=== PATIENT | female | born 1975 | race Caucasian/White ===

== ENCOUNTER 2024-07-16 03:46 | Inpatient (IN) ==
[2024-07-16] MEDS: 0.9 % SODIUM CHLORIDE 1,000 ML IV ONE (04:08)
[2024-07-16] MEDS: methylPREDNISolone SOD SUCC 125 MG/2 ML VIAL IV ONE (04:08)
[2024-07-16 04:22] LABS: Basophils # (Auto) 0.07 K/mcL (0.00-0.30); Basophils % (Auto) 0.5 % (0.0-2.0); Eosinophils # (Auto) 0.66 K/mcL (0.00-0.70); Eosinophils % (Auto) 5.1 % (0.0-7.0); Hematocrit 43.8 % (34.1-44.9); Hemoglobin 14.1 g/dL (11.2-15.7); Lymphocytes # (Auto) 3.97 K/mcL (1.50-4.80); Lymphocytes % (Auto) 30.5 % (15.5-49.0); Mean Cell Volume 89.2 fL (80.0-100.0); Mean Corpuscular HGB Conc 32.2 g/dL (31.0-36.0); Mean Platelet Volume 10.2 fL (8.8-12.5); Monocytes # (Auto) 0.67 K/mcL (0.10-0.90); Monocytes % (Auto) 5.1 % (1.0-12.0); Neutrophils % (Auto) 58.1 % (38.0-78.0); Platelet Count 342 K/mcL (140-440); RBC 4.91 M/mcL (3.59-5.38); Red Cell Distribution Width 14.3 % (11.5-14.5)
[2024-07-16] MEDS: MAGNESIUM SULFATE 8.12 MEQ/2 ML VIAL IV ONE (04:32)
[2024-07-16 04:41] LABS: proBNP < 36.0 pg/mL (<125.0)
[2024-07-16 04:43] LABS: ALT/SGPT 26 U/L (<40); AST/SGOT 23 U/L (<32); Albumin 3.9 gm/dL (3.2-5.2); Alkaline Phosphatase 101 U/L (39-117); Bilirubin,Total 0.4 mg/dL (0.1-1.0); Blood Urea Nitrogen 8 mg/dL (6-20); Calcium 9.7 mg/dL (8.6-10.4); Carbon Dioxide 20 mmol/L (22-30); Chloride 101 mmol/L (96-108); Globulin 3.9 gm/dL (2.2-3.7); Glomerular Filtration Rate 106; Glucose 278 mg/dL (70-105); Potassium 3.3 mmol/L (3.3-5.1); Sodium 138 mmol/L (133-145)
[2024-07-16] MEDS: diphenhydrAMINE 50 MG/ML VIAL IV ONE (04:56)
[2024-07-16] MEDS: EPINEPHrine 1 MG/ML VIAL IM ONE (05:09)
[2024-07-16] MEDS ORDERED: ALBUTEROL SULFATE 60 PUFF INHALER INH PRN (08:15)
[2024-07-16] MEDS ORDERED: traZODone HCL 50 MG TABLET PO PRN (09:32)
[2024-07-16] MEDS ORDERED: DEXTROSE 50% 50 ML VIAL IV PRN (09:32)
[2024-07-16] MEDS ORDERED: ACETAMINOPHEN 325 MG TABLET PO PRN (09:32)
[2024-07-16] MEDS ORDERED: DEXTROSE 31 GM ORAL.SUSP PO PRN (09:32)
[2024-07-16] MEDS ORDERED: IPRATROPIUM/ALBUTEROL 3 ML AMPUL.NEB NEB PRN (09:32)
[2024-07-16] MEDS ORDERED: ONDANSETRON 4 MG/2 ML VIAL IV PRN (09:32)
[2024-07-16] MEDS: DOCUSATE SODIUM 100 MG CAPSULE PO SCH (09:39)
[2024-07-16] MEDS: FORMOTEROL INH SCH (09:39)
[2024-07-16] MEDS: [UNRECOGNIZED DRUG - OTHER] INH SCH (09:39)
[2024-07-16] MEDS: BUDESONIDE INH SCH (09:39)
[2024-07-16] MEDS: IPRATROPIUM/ALBUTEROL 3 ML AMPUL.NEB NEB SCH (10:28)
[2024-07-16] MEDS: ENOXAPARIN 40 MG/0.4 ML SYRINGE SQ SCH (10:30)
[2024-07-16 10:32] LABS: Estimated Average Glucose(eAG) 232 mg/dL; Hemoglobin A1C 9.7 % Hgb (4.0-6.0)
[2024-07-16] MEDS: INSULIN LISPRO 1 UNIT/0.01 ML UNIT SQ SCH (11:41)
[2024-07-16] MEDS: diphenhydrAMINE 50 MG/ML VIAL IV PRN (14:02)
[2024-07-16] MEDS: 0.9 % SODIUM CHLORIDE 10 ML SYRINGE IV SCH (14:02)
[2024-07-16] MEDS: methylPREDNISolone SOD SUCC 125 MG/2 ML VIAL IV SCH (14:02)
[2024-07-16] MEDS: POTASSIUM CHLORIDE 20 MEQ TABLET PO SCH (16:47)
[2024-07-16] MEDS: rOPINIRole 1 MG TABLET PO SCH (19:15)
[2024-07-16] MEDS: BENZONATATE 100 MG CAPSULE PO PRN (19:16)
[2024-07-16] MEDS: SENNOSIDES 1 TABLET PO SCH (19:18)
[2024-07-16] MEDS: INSULIN GLARGINE, HUMAN 1 UNIT/0.01 ML SQ SCH (22:02)
[2024-07-17] MEDS: guaiFENesin/DEXTROMETHORPHAN 5ML UD CUP PO PRN (01:37)
[2024-07-17 07:03] LABS: Blood Urea Nitrogen 15 mg/dL (6-20); Calcium 9.9 mg/dL (8.6-10.4); Carbon Dioxide 20 mmol/L (22-30); Chloride 98 mmol/L (96-108); Glomerular Filtration Rate 101; Glucose 372 mg/dL (70-105); Potassium 4.4 mmol/L (3.3-5.1); Sodium 133 mmol/L (133-145)
[2024-07-17] MEDS: OMEPRAZOLE 20 MG CAPSULE PO SCH (07:40)
[2024-07-17] MEDS: SERTRALINE 50 MG TABLET PO SCH (09:53)
[2024-07-17] MEDS: MONTELUKAST 10 MG TABLET PO SCH (09:53)
[2024-07-17] MEDS: PNEUMOCOCCAL 23-VAL P-SAC VAC 0.5 ML SYRINGE IM ONE (09:54)
[2024-07-17] MEDS: RACEPINEPHRINE 0.5 ML AMPUL.NEB ONE (10:27)
[2024-07-17] MEDS ORDERED: DEXTROSE 50% 50 ML VIAL IV PRN (10:47)
[2024-07-17] MEDS ORDERED: DEXTROSE 31 GM ORAL.SUSP PO PRN (10:47)
[2024-07-17] MEDS: BENZOCAINE/MENTHOL 1 LOZENGE PO PRN (11:00)
[2024-07-17] MEDS: INSULIN LISPRO 1 UNIT/0.01 ML UNIT SQ SCH (11:18)
[2024-07-17] MEDS: guaiFENesin/CODEINE 10 ML UDC PO PRN (13:55)
[2024-07-17] MEDS ORDERED: LEVALBUTEROL 1.25 MG/3 ML AMPUL.NEB NEB PRN (19:22)
[2024-07-17] MEDS: INSULIN GLARGINE, HUMAN 1 UNIT/0.01 ML SQ SCH (21:50)
[2024-07-17] MEDS: diphenhydrAMINE 25 MG CAPSULE PO PRN (21:50)
[2024-07-17] MEDS: LEVALBUTEROL 1.25 MG/3 ML AMPUL.NEB NEB SCH (22:24)
[2024-07-18] MEDS: IPRATROPIUM 2.5 ML AMPUL.NEB INH PRN (06:47)
[2024-07-18 07:05] LABS: Blood Urea Nitrogen 19 mg/dL (6-20); Calcium 9.7 mg/dL (8.6-10.4); Carbon Dioxide 22 mmol/L (22-30); Chloride 99 mmol/L (96-108); Glomerular Filtration Rate 101; Glucose 334 mg/dL (70-105); Potassium 4.6 mmol/L (3.3-5.1); Sodium 135 mmol/L (133-145)
[2024-07-18] MEDS: FUROSEMIDE 20 MG TABLET PO SCH (08:47)
[2024-07-18] MEDS: RACEPINEPHRINE 0.5 ML AMPUL.NEB NEB ONE ×2 (09:53→21:02)
[2024-07-18] MEDS: BENZOCAINE/MENTHOL 1 LOZENGE PO PRN (10:24)
[2024-07-18] MEDS: INSULIN GLARGINE, HUMAN 1 UNIT/0.01 ML SQ SCH (21:14)
[2024-07-19 06:48] LABS: Blood Urea Nitrogen 17 mg/dL (6-20); Calcium 9.2 mg/dL (8.6-10.4); Carbon Dioxide 25 mmol/L (22-30); Chloride 101 mmol/L (96-108); Glomerular Filtration Rate 101; Glucose 283 mg/dL (70-105); Potassium 4.4 mmol/L (3.3-5.1); Sodium 138 mmol/L (133-145)
[2024-07-19 11:09] VITALS: O2SAT 94
[2024-07-19 11:50] VITALS: TEMP 98.5
== END 2024-07-19 15:50 | disposition home or self-care (01) | DRG 202 ==
LOC: ED 03:46 → ICU 09:30 → MEDSUR 07-17 13:12
PROVIDERS: ADMIT Internal Medicine; ATTEND Internal Medicine